=== PATIENT | female | born 1985 | race Two or more races ===

== ENCOUNTER 2021-01-27 04:09 | Emergency (ER) | payer BC ==
[~2021-01-27] VITALS: Ht 165.1 cm; Wt 99.8 kg
[2021-01-27] MEDS ORDERED: NAPROXEN375 MG PO (09:13)
[2021-01-27] MEDS ORDERED: NORFLEX100MG PO (09:13)
[2021-02-01] MEDS ORDERED: ACETAMINOPHEN650 M2 (10:13)
== END 2021-01-27 09:26 | disposition home or self-care (01) ==
LOC: ER 04:09
DX: R07.89 Other chest pain (principal); R00.2 Palpitations